=== PATIENT | female | born 2000 | race Caucasian/White ===

== ENCOUNTER 2024-06-14 04:45 | Emergency (ER) | payer SELFPAY ==
[~2024-06-14] VITALS: Ht 165.1 cm; Wt 54.4 kg
[2024-06-14 04:54] VITALS: BP 120/84; PULSE 111; RESP 14; TEMP 99.5; O2SAT 99
[2024-06-14] MEDS: ACETAMINOPHEN EXTRA STRENGTH 500 MG TAB PO ONE (05:37)
[2024-06-14] MEDS: IBUPROFEN 600 MG TAB PO ONE (05:37)
== END 2024-06-14 05:42 | disposition home or self-care (01) ==
LOC: MED 04:45
DX: S90.822A Blister (nonthermal), left foot, initial encounter (principal); S90.821A Blister (nonthermal), right foot, initial encounter; X58.XXXA Exposure to other specified factors, initial encounter; Y93.89 Activity, other specified; Y92.89 Other specified places as the place of occurrence of the external cause; Y99.8 Other external cause status
CPT/HCPCS: 99283

== ENCOUNTER 2024-06-14 12:04 | Emergency (ER) | payer SELFPAY ==
[~2024-06-14] VITALS: Ht 170.2 cm; Wt 63.5 kg
[2024-06-14 12:05] VITALS: BP 126/78; PULSE 90; RESP 18; TEMP 98; O2SAT 98
== END 2024-06-14 13:06 | disposition home or self-care (01) ==
LOC: MED 12:04
DX: M79.605 Pain in left leg (principal); M79.604 Pain in right leg
CPT/HCPCS: 99283